=== PATIENT | male | born 1995 | race Caucasian/White ===

== ENCOUNTER 2017-12-24 03:45 | Emergency (ER) | payer BC ==
[~2017-12-24] VITALS: Ht 167.6 cm; Wt 90.7 kg
[2017-12-24 03:45] VITALS: BP_SYST 128
[2017-12-24] MEDS ORDERED: MAG-AL HYDROX/SIMETH 30 ML UDC PO ONE (04:15)
[2017-12-24] MEDS ORDERED: BELLADONNA ALKALOIDS/PHENOBARB 5 ML UDC PO ONE (04:15)
[2017-12-24] MEDS ORDERED: LIDOCAINE VISCOUS 2%, 15 ML UDC MM ONE (04:15)
[2017-12-24 04:22] LABS: BARBITURATE, URINE NEGATIVE (NEG <=200); BENZODIAZEPINE, URINE NEGATIVE (NEG <=150); CANNABINOID, URINE NEGATIVE (NEG <=50); COCAINE, URINE NEGATIVE (NEG <=150); METHAMPHETAMINES SCREEN,URINE NEGATIVE (NEG <=500); OPIATE, URINE NEGATIVE (NEG <=100); PHENCYCLIDINE SCREEN,URINE NEGATIVE (NEG <=25); UR TRICYCLIC ANTIDEPRESSANTS NEGATIVE (NEG <=300); URINE AMPHETAMINE NEGATIVE (NEG <=500); URINE METHADONE NEGATIVE (NEG <=200); URINE OXYCODONE SCREEN NEGATIVE (NEG <=100); URINE PROPOXYPHENE SCREEN NEGATIVE (NEG <=300)
[2017-12-24] MEDS ORDERED: PANTOPRAZOLE SODIUM 40 MG/VIAL (PROTONIX) IVP ONE (04:30)
[2017-12-24] MEDS ORDERED: NACL 0.9% 1,000 ML IV ONE (04:30)
[2017-12-24 05:09] VITALS: BP_SYST 132
[2017-12-24] MEDS ORDERED: METOCLOPRAMIDE HCL 10 MG/2 ML VIAL ONE (12:24)
== END 2017-12-24 05:09 | disposition home or self-care (01) ==
LOC: SED 03:45
DX: K21.9 Gastro-esophageal reflux disease without esophagitis (principal); R03.0 Elevated blood-pressure reading, without diagnosis of hypertension
CPT/HCPCS: 80307; 93005; 96361; 96374; 99285; C9113; J2001; J2765; J7030